=== PATIENT | female | born 1945 | race Caucasian/White ===

== ENCOUNTER 2019-03-11 10:14 | Outpatient (CLI) | payer MEDICARE, OTHER ==
--- NOTE | 2019-03-11 19:02 | RAD ---
LUMBAR SPINE THREE VIEWS 03/11/19 No fracture, dislocation, or acute bony change was seen. Minor narrowing at L5-S1 may or may not be s ignificant. There is some narrowing at T11-T12. The SI joints are symmetrical and show small amounts of sclerosis. Overall, the level of degenerative change is not excessive for age. Arteriosclerotic ch anges are seen in the aorta and iliac arteries. IMPRESSION: No acute findings. POS: HOME
== END 2019-03-11 10:15 | disposition home or self-care (01) ==
LOC: BURRAD 10:14
PROVIDERS: ATTEND Family Medicine
DX: M54.31 Sciatica, right side (principal)
CPT/HCPCS: 72100